=== PATIENT | female | born 1975 | race Caucasian/White ===

== ENCOUNTER 2017-10-01 12:45 | Day surgery (SDC) | payer OTHER ==
[~2017-10-01] VITALS: Ht 162.6 cm; Wt 77.0 kg
[~2017-10-01 12:45] MED LIST: BENADRYL25 MG PO; CEFTIN500 MG PO; SYNTHROID50 MCG PO; VIBRAMYCIN100 MG PO
[2017-10-01 13:15] VITALS: BP 112/70
[2017-10-01] MEDS ORDERED: ONDANSETRON HCL8 MG PO (14:20)
[2017-10-01] MEDS ORDERED: DILAUDID4 MG PO (14:20)
[2017-10-01] MEDS ORDERED: COLACE100 MG PO (14:20)
[2017-10-01 16:58] VITALS: BP 110/60
[2017-10-01 18:16] VITALS: BP 105/60
== END 2017-10-01 18:52 | disposition home or self-care (01) ==
LOC: SDC 12:45
PROC: 0FT44ZZ Resection of Gallbladder, Percutaneous Endoscopic Approach (ICD-10-PCS; principal; 2017-10-01)
DX: K80.10 Calculus of gallbladder with chronic cholecystitis without obstruction (principal); E03.9 Hypothyroidism, unspecified
CPT/HCPCS: 88304; J0131; J0690; J1170; J1200; J1885; J2250; J2405; J2710; J3010; J7120; J7643; Q0175